=== PATIENT | male | born 1985 | race Caucasian/White ===

== ENCOUNTER 2018-06-21 04:48 | Emergency (ER) | payer BC ==
[2018-06-21] MEDS ORDERED: Ondansetron 4 MG/2 ML SDV IVPUSH ONE (05:04)
[2018-06-21] MEDS ORDERED: Sodium Chloride 0.9% 1,000 ML IV ONE ×2 (05:04→07:30)
[2018-06-21] MEDS ORDERED: Pantoprazole 40 MG Vial IVPUSH ONE (05:04)
--- NOTE | 2018-06-21 05:06 | EDM.PDOC ---
<Anand Pat - Last Filed: 06/21/18 06:47> ED HPI GENERAL MEDICAL PROBLEM - General Chief Complaint: Gastrointestinal Problem Stated Complaint: THROWING UP BLOOD Time Seen by Provider: 06/21/18 05:05 Source of Information: Reports: Patient - History of Present Illness INITIAL COMMENTS - FREE TEXT/NARRATIVE: HISTORY AND PHYSICAL: History of present illness: [Patient presents with blood-streaked vomit which began at 3 AM Patient states that he had an episode of blood-streaked vomiting one week ago that was accompanied by hematuria, resolved after 4 hours. He presents tonight with symptoms which began at 3 AM, patient has some sharp low back pain rates 5 out of 10 nonradiating as well as feeling as if he is constipated however he did have a bowel movement normal formed stool with no blood or mucus at 5 PM last night. He also states he has a sensation of urgency to urinate however cannot urinate as he has not been taking in fluids. He has no fever chills sweats no chest pain shortness breath headache dizziness or palpitation no footdrop or saddle anesthesia ] Review of systems: As per history of present illness and below otherwise all systems reviewed and negative. Past medical history: As per history of present illness and as reviewed below otherwise noncontributory. Surgical history: As per history of present illness and as reviewed below otherwise noncontributory. Social history: No reported history of drug or alcohol abuse. Family history: As per history of present illness and as reviewed below otherwise noncontributory. Physical exam: HEENT: Atraumatic, normocephalic, pupils reactive, negative for conjunctival pallor or scleral icterus, mucous membranes moist, throat clear, neck supple, nontender, trachea midline. Lungs: Clear to auscultation, breath sounds equal bilaterally, chest nontender. Heart: S1S2, regular, negative for clicks, rubs, or JVD. Abdomen: Soft, nondistended, nontender. Negative for masses or hepatosplenomegaly. Negative for costovertebral tenderness. Pelvis: Stable nontender. Genitourinary: Deferred. Rectal: Deferred. Extremities: Atraumatic, negative for cords or calf pain. Neurovascular unremarkable. Neuro: Awake, alert, oriented. Cranial nerves II through XII unremarkable. Cerebellum unremarkable. Motor and sensory unremarkable throughout. Exam nonfocal. Diagnostics: [CBC CMP UA INR troponin drug screen EKG Chest 1 view ] ET abdomen pelvis with and without contrast Therapeutics: [Liter normal saline bolus Zofran 8 mg IV Proton X 80 mg IV ]Morphine 2 mg IV Patient will have to be signed out at shift change to follow CT and urine CBC and CMP of returned essentially normal outside of creatinine of 1.4 Impression: Blood-streaked vomitus Definitive disposition and diagnosis as appropriate pending reevaluation and review of above. lower back Pain Score (Numeric/FACES): 9 - Related Data Allergies Allergy/AdvReac Type Severity Reaction Status Date / Time No Known Allergies Allergy Verified 06/21/18 05:02 Home Meds: Home Meds . [No Known Home Meds] 06/21/18 [History] Past Medical History - Past Health History Medical/Surgical History: Denies Medical/Surgical History HEENT History: Reports: Other (See Below) Other HEENT History: wears glasses - Past Surgical History HEENT Surgical History: Reports: None Social & Family History - Family History Family Medical History: Noncontributory - Tobacco Use Smoking Status *Q: Never Smoker Second Hand Smoke Exposure: No - Caffeine Use Caffeine Use: Reports: Soda - Recreational Drug Use Recreational Drug Use: No Course - Vital Signs Last Recorded V/S: Last Vital Signs Temp 96.4 F 06/21/18 04:56 Pulse 59 L 06/21/18 04:56 Resp 20 06/21/18 04:56 BP 141/94 H 06/21/18 04:56 Pulse Ox 96 06/21/18 04:56 - Orders/Labs/Meds Orders: Active Orders 24 hr Category Date Time Status EKG Documentation Completion [RC] STAT Care 06/21/18 05:04 Active Abdomen Pelvis w wo Cont [CT] Stat Exams 06/21/18 05:51 Taken Chest 1V Frontal [CR] Stat Exams 06/21/18 05:05 Ordered Sodium Chloride 0.9% [Normal Saline] 1,000 ml Med 06/21/18 07:30 Active IV .BOLUS Medication Orders Sodium Chloride (Normal Saline) 1,000 mls @ 999 mls/hr IV .BOLUS ONE Stop: 06/21/18 08:30 Last Admin: 06/21/18 07:31 Dose: 999 mls/hr Labs: Laboratory Tests 06/21/18 06/21/18 06/21/18 Range/Units 00:50 00:50 00:50 WBC 10.65 (4.0-11.0) K/uL RBC 5.03 (4.50-5.90) M/uL Hgb 16.1 (13.0-17.0) g/dL Hct 44.8 (38.0-50.0) % MCV 89.1 (80.0-98.0) fL MCH 32.0 (27.0-32.0) pg MCHC 35.9 (31.0-37.0) g/dL RDW Std Deviation 41.5 (28.0-62.0) fl RDW Coeff of Hannah 13 (11.0-15.0) % Plt Count 237 (150-400) K/uL MPV 10.20 (7.40-12.00) fL Neut % (Auto) 48.6 (48.0-80.0) % Lymph % (Auto) 41.6 H (16.0-40.0) % Latimer % (Auto) 6.8 (0.0-15.0) % Eos % (Auto) 2.0 (0.0-7.0) % Baso % (Auto) 1.0 (0.0-1.5) % Neut # (Auto) 5.2 (1.4-5.7) K/uL Lymph # (Auto) 4.4 H (0.6-2.4) K/uL Latimer # (Auto) 0.7 (0.0-0.8) K/uL Eos # (Auto) 0.2 (0.0-0.7) K/uL Baso # (Auto) 0.1 (0.0-0.1) K/uL Nucleated RBC % 0.0 /100WBC Nucleated RBCs # 0 K/uL INR 1.03 Sodium 140 (136-148) mmol/L Potassium 3.5 (3.5-5.1) mmol/L Chloride 104 (98-107) mmol/L Carbon Dioxide 26.7 (21.0-32.0) mmol/L BUN 13 (7.0-18.0) mg/dL Creatinine 1.4 H (0.8-1.3) mg/dL Est Cr Clr Drug Dosing 76.77 mL/min Estimated GFR (MDRD) 58.0 ml/min Glucose 142 H (74-106) mg/dL Calcium 8.9 (8.5-10.1) mg/dL Total Bilirubin 0.8 (0.2-1.0) mg/dL AST 27 (15-37) IU/L ALT 52 (14-63) IU/L Alkaline Phosphatase 101 (46-116) U/L Troponin I < 0.050 (0.000-0.056) ng/mL Total Protein 7.6 (6.4-8.2) g/dL Albumin 3.9 (3.4-5.0) g/dL Globulin 3.7 H (2.0-3.5) g/dL Albumin/Globulin Ratio 1.1 L (1.3-2.8) Lipase (73-393) U/L Prostate Specific Ag (0.05-4.00) ng/mL Urine Color Urine Appearance Urine pH (5.0-8.0) Ur Specific Aldie (1.001-1.035) Urine Protein (NEGATIVE) mg/dL Urine Glucose (UA) (NEGATIVE) mg/dL Urine Ketones (NEGATIVE) mg/dL Urine Occult Blood (NEGATIVE) Urine Nitrite (NEGATIVE) Urine Bilirubin (NEGATIVE) Urine Urobilinogen (<2.0) EU/dL Ur Leukocyte Esterase (NEGATIVE) Urine RBC (0-2/HPF) Urine WBC (0-5/HPF) Ur Epithelial Cells (NONE-FEW) Urine Bacteria (NEGATIVE) Ethyl Alcohol <3 mg/dL Blood Type Antibody Screen 06/21/18 06/21/18 06/21/18 Range/Units 05:05 05:05 05:46 WBC (4.0-11.0) K/uL RBC (4.50-5.90) M/uL Hgb (13.0-17.0) g/dL Hct (38.0-50.0) % MCV (80.0-98.0) fL MCH (27.0-32.0) pg MCHC (31.0-37.0) g/dL RDW Std Deviation (28.0-62.0) fl RDW Coeff of Hannah (11.0-15.0) % Plt Count (150-400) K/uL MPV (7.40-12.00) fL Neut % (Auto) (48.0-80.0) % Lymph % (Auto) (16.0-40.0) % Latimer % (Auto) (0.0-15.0) % Eos % (Auto) (0.0-7.0) % Baso % (Auto) (0.0-1.5) % Neut # (Auto) (1.4-5.7) K/uL Lymph # (Auto) (0.6-2.4) K/uL Latimer # (Auto) (0.0-0.8) K/uL Eos # (Auto) (0.0-0.7) K/uL Baso # (Auto) (0.0-0.1) K/uL Nucleated RBC % /100WBC Nucleated RBCs # K/uL INR Sodium (136-148) mmol/L Potassium (3.5-5.1) mmol/L Chloride (98-107) mmol/L Carbon Dioxide (21.0-32.0) mmol/L BUN (7.0-18.0) mg/dL Creatinine (0.8-1.3) mg/dL Est Cr Clr Drug Dosing mL/min Estimated GFR (MDRD) ml/min Glucose (74-106) mg/dL Calcium (8.5-10.1) mg/dL Total Bilirubin (0.2-1.0) mg/dL AST (15-37) IU/L ALT (14-63) IU/L Alkaline Phosphatase (46-116) U/L Troponin I (0.000-0.056) ng/mL Total Protein (6.4-8.2) g/dL Albumin (3.4-5.0) g/dL Globulin (2.0-3.5) g/dL Albumin/Globulin Ratio (1.3-2.8) Lipase 127 (73-393) U/L Prostate Specific Ag 4.11 H (0.05-4.00) ng/mL Urine Color Urine Appearance Urine pH (5.0-8.0) Ur Specific Aldie (1.001-1.035) Urine Protein (NEGATIVE) mg/dL Urine Glucose (UA) (NEGATIVE) mg/dL Urine Ketones (NEGATIVE) mg/dL Urine Occult Blood (NEGATIVE) Urine Nitrite (NEGATIVE) Urine Bilirubin (NEGATIVE) Urine Urobilinogen (<2.0) EU/dL Ur Leukocyte Esterase (NEGATIVE) Urine RBC (0-2/HPF) Urine WBC (0-5/HPF) Ur Epithelial Cells (NONE-FEW) Urine Bacteria (NEGATIVE) Ethyl Alcohol mg/dL Blood Type A POSITIVE Antibody Screen NEGATIVE 06/21/18 Range/Units 06:50 WBC (4.0-11.0) K/uL RBC (4.50-5.90) M/uL Hgb (13.0-17.0) g/dL Hct (38.0-50.0) % MCV (80.0-98.0) fL MCH (27.0-32.0) pg MCHC (31.0-37.0) g/dL RDW Std Deviation (28.0-62.0) fl RDW Coeff of Hannah (11.0-15.0) % Plt Count (150-400) K/uL MPV (7.40-12.00) fL Neut % (Auto) (48.0-80.0) % Lymph % (Auto) (16.0-40.0) % Latimer % (Auto) (0.0-15.0) % Eos % (Auto) (0.0-7.0) % Baso % (Auto) (0.0-1.5) % Neut # (Auto) (1.4-5.7) K/uL Lymph # (Auto) (0.6-2.4) K/uL Latimer # (Auto) (0.0-0.8) K/uL Eos # (Auto) (0.0-0.7) K/uL Baso # (Auto) (0.0-0.1) K/uL Nucleated RBC % /100WBC Nucleated RBCs # K/uL INR Sodium (136-148) mmol/L Potassium (3.5-5.1) mmol/L Chloride (98-107) mmol/L Carbon Dioxide (21.0-32.0) mmol/L BUN (7.0-18.0) mg/dL Creatinine (0.8-1.3) mg/dL Est Cr Clr Drug Dosing mL/min Estimated GFR (MDRD) ml/min Glucose (74-106) mg/dL Calcium (8.5-10.1) mg/dL Total Bilirubin (0.2-1.0) mg/dL AST (15-37) IU/L ALT (14-63) IU/L Alkaline Phosphatase (46-116) U/L Troponin I (0.000-0.056) ng/mL Total Protein (6.4-8.2) g/dL Albumin (3.4-5.0) g/dL Globulin (2.0-3.5) g/dL Albumin/Globulin Ratio (1.3-2.8) Lipase (73-393) U/L Prostate Specific Ag (0.05-4.00) ng/mL Urine Color YELLOW Urine Appearance HAZY Urine pH 5.0 (5.0-8.0) Ur Specific Aldie 1.010 (1.001-1.035) Urine Protein NEGATIVE (NEGATIVE) mg/dL Urine Glucose (UA) NEGATIVE (NEGATIVE) mg/dL Urine Ketones 15 H (NEGATIVE) mg/dL Urine Occult Blood LARGE H (NEGATIVE) Urine Nitrite NEGATIVE (NEGATIVE) Urine Bilirubin NEGATIVE (NEGATIVE) Urine Urobilinogen 0.2 (<2.0) EU/dL Ur Leukocyte Esterase NEGATIVE (NEGATIVE) Urine RBC 7-10 (0-2/HPF) Urine WBC 0-2 (0-5/HPF) Ur Epithelial Cells RARE (NONE-FEW) Urine Bacteria RARE (NEGATIVE) Ethyl Alcohol mg/dL Blood Type Antibody Screen Meds: Medications Generic Name Dose Route Start Last Admin Trade Name Freq PRN Reason Stop Dose Admin Sodium Chloride 1,000 mls @ 999 mls/hr 06/21/18 07:30 06/21/18 07:31 Normal Saline IV 06/21/18 08:30 999 mls/hr .BOLUS ONE Administration Discontinued Medications Generic Name Dose Route Start Last Admin Trade Name Freq PRN Reason Stop Dose Admin Sodium Chloride 1,000 mls @ 999 mls/hr 06/21/18 05:04 06/21/18 05:12 Normal Saline IV 06/21/18 06:04 999 mls/hr STAT ONE Administration Iopamidol 100 ml 06/21/18 06:25 06/21/18 06:26 Isovue Multipack-370 (76%) IVPUSH 06/21/18 06:26 100 ml ONETIME STA Administration Morphine Sulfate 2 mg 06/21/18 05:51 06/21/18 06:03 Morphine IVPUSH 06/21/18 05:52 2 mg ONETIME ONE Administration Ondansetron HCl 8 mg 06/21/18 05:04 06/21/18 05:13 Zofran IVPUSH 06/21/18 05:05 8 mg ONETIME ONE Administration Pantoprazole Sodium 80 mg 06/21/18 05:04 06/21/18 05:14 Protonix Iv IVPUSH 06/21/18 05:05 80 mg .BOLUS ONE Administration Departure - Departure Disposition: Home, Self-Care 01 Clinical Impression: Ureterolithiasis Hydronephrosis Qualifiers: Hydronephrosis type: with ureteral calculous obstruction Qualified Code(s): N13.2 - Hydronephrosis with renal and ureteral calculous obstruction Hematuria Qualifiers: Hematuria type: gross Qualified Code(s): R31.0 - Gross hematuria Low back pain Qualifiers: Chronicity: acute Back pain laterality: left Sciatica presence: without sciatica Qualified Code(s): M54.5 - Low back pain - Discharge Information Referrals: PCP,None [Primary Care Provider] - Forms: ED Department Discharge Additional Instructions: My general discharge The following information is given to patients seen in the emergency department who are being discharged to home. This information is to outline your options for follow-up care. We provide all patients seen in our emergency department with a follow-up referral. The need for follow-up, as well as the timing and circumstances, are variable depending upon the specifics of your emergency department visit. If you don't have a primary care physician on staff, we will provide you with a referral. We always advise you to contact your personal physician following an emergency department visit to inform them of the circumstance of the visit and for follow-up with them and/or the need for any referrals to a consulting specialist. The emergency department will also refer you to a specialist when appropriate. This referral assures that you have the opportunity for follow-up care with a specialist. All of these measure are taken in an effort to provide you with optimal care, which includes your follow-up. Under all circumstances we always encourage you to contact your private physician who remains a resource for coordinating your care. When calling for follow-up care, please make the office aware that this follow-up is from your recent emergency room visit. If for any reason you are refused follow-up, please contact the [facility] Emergency Department at and asked to speak to the emergency department charge nurse. [facility] Specialty Care - Urology [address] [place] [address] [facility] Primary Care [address] [place] [id number] Please follow-up with primary care as we discussed on Saturday. Be sure to tell them that he was seen in the emergency department and they wish for you to be seen as soon as possible for follow-up. Follow-up with urology with number above if continued pain for greater than a week. Take medication as prescribed. Return to emergency department if any new or worsening symptoms as we discussed. - My Orders Last 24 Hours: My Active Orders 06/21/18 07:30 Sodium Chloride 0.9% [Normal Saline] 1,000 ml IV .BOLUS - Assessment/Plan Last 24 Hours: My Active Orders 06/21/18 07:30 Sodium Chloride 0.9% [Normal Saline] 1,000 ml IV .BOLUS <Tad Lerma - Last Filed: 06/21/18 08:16> ED HPI GENERAL MEDICAL PROBLEM - General Source of Information: Reports: Patient - History of Present Illness INITIAL COMMENTS - FREE TEXT/NARRATIVE: Dr. Lerma taking over patient at [id number]. I have been thoroughly briefed by Dr. Oviedo on patient. I reviewed pertinent labs and radiographs. I agree with the above and have personally examined patient. Patient is a 32-year-old male who came in initially with nausea vomiting/blood- streaked and lower back pain. In reviewing labs his CBC was unremarkable. CMP did show mild elevation in creatinine as well as some decreased kidney function most likely secondary to dehydration from his vomiting. INR and lipase unremarkable. Chest x-ray unremarkable. Urinalysis showed no infection but was positive for blood. CT abdomen and pelvis did show a 2 mm obstructing calculus in the distal left ureter with mild left hydronephrosis. I did talk to the patient about his obstructing nephrolithiasis. Most likely he will pass the stone on his own. I did call Dr. Villalpando, urologist, and made him aware of this patient. He is going to follow-up with him in his clinic if patient continues to have problems. I discharged the patient in good condition with Flomax and pain medication. I also gave the patient a strainer in order to retrieve the stone and bring it to the urologist for analysis. He was instructed to return to emergency department if he had any new or worsening symptoms. ED ROS GENERAL - Review of Systems Review Of Systems: ROS reveals no pertinent complaints other than HPI. ED EXAM, GENERAL - Physical Exam Exam: See Below Departure - Departure Time of Disposition: 08:13 Condition: Good
[2018-06-21 05:42] LABS: CHLORIDE,CL 104 mmol/L (98-107); SODIUM,NA 140 mmol/L (136-148)
[2018-06-21] MEDS ORDERED: Morphine 2 MG/ML Syringe IVPUSH ONE (05:51)
[2018-06-21] MEDS ORDERED: Iopamidol 755 MG/ML 200 ML Multipack Bottle IVPUSH STA (06:25)
--- NOTE | 2018-06-23 11:24 | CR ---
EXAM DATE: 06/21/18 PATIENT'S AGE: 32 Patient: CHARAN GAVIRIA Facility: [place], [place] Site . Site : 1985 Study: XRay Chest [id number]/22/2018 6:06:19 AM Ordering Physician: Doctor Aleman Final Report: INDICATION: sob TECHNIQUE: Chest 1 view. COMPARISON: None. FINDINGS: Cardiovascular and mediastinum: Heart size and vasculature are normal in caliber and appearance. Mediastinum is within normal limits. Lungs and pleural space: Lungs are clear. No sign of infiltrate or mass. No sign of pleural effusion. No pneumothorax. Bones and soft tissues: No significant findings. IMPRESSION: Unremarkable chest. Dictated by: Chema Daley MD @ 06/21/2018 06:43:53 (Electronic Signature) Report Signed by Proxy. [facility]
--- NOTE | 2018-06-23 11:25 | CT ---
EXAM DATE: 06/21/18 PATIENT'S AGE: 32 Patient: CHARAN GAVIRIA Facility: [place], [place] Site . Site : 1985 Study: CT Abdomen/Pelvis [id number]/22/2018 6:28:14 AM Ordering Physician: Preet Michel Final Report: INDICATION: Abdominal pain TECHNIQUE: CT abdomen and pelvis without contrast. COMPARISON: None FINDINGS: Lower chest: Small hiatal hernia. Liver: Unremarkable. Spleen: Unremarkable. Pancreas: Unremarkable. Gallbladder and bile ducts: Unremarkable. Kidneys: 2 millimeter obstructing calculus distal left ureter with mild left hydronephrosis. Adrenal glands: Unremarkable. GI tract: Unremarkable. Appendix is normal. Vascular structures: Unremarkable. Lymph nodes: Unremarkable. Miscellaneous: Unremarkable. No free air or significant free fluid. Pelvic Organs: Unremarkable. Bones: Unremarkable for age. IMPRESSION: 2 millimeter obstructing calculus distal left ureter with mild left hydronephrosis. Small hiatal hernia. Dictated by Chema Daley MD @ 06/21/2018 7:00:09 AM Dictated by: Chema Daley MD @ 06/21/2018 07:00:14 (Electronic Signature) Report Signed by Proxy. BENNIE
== END 2018-06-21 08:50 | disposition home or self-care (01) ==
LOC: MW.ED 04:48
DX: N13.2 Hydronephrosis with renal and ureteral calculous obstruction (principal); R31.0 Gross hematuria
CPT/HCPCS: 36415; 74178; 80053; 81001; 83690; 84153; 84484; 85025; 85610; 86850; 86900; 86901; 93005; 96361; 96374; 96375; 99284; C9113; G0480; J2270; J2405; J7040; Q9967; 71045; 71045-26; 99283